=== PATIENT | female | born 1975 | race African-American/Black ===

== ENCOUNTER 2016-08-21 19:47 | Emergency (ER) | payer BC | END 2016-08-21 20:57 | disposition home or self-care (01) | LOC: D.ER 19:47 | DX: J30.9 Allergic rhinitis, unspecified (principal) ==

== ENCOUNTER 2017-12-01 09:52 | Emergency (ER) | payer BC, MEDICAID ==
[~2017-12-01] VITALS: Ht 160 cm; Wt 70.0 kg
[2017-12-01 10:01] VITALS: Ht 160 cm; Wt 70.0 kg
[2017-12-01] MEDS ORDERED: AUGMENTIN 875-11 TAB PO (10:30)
[2017-12-01 11:34] VITALS: BP 166/85
== END 2017-12-01 11:38 | disposition home or self-care (01) ==
LOC: D.ER 09:52
DX: S61.210A Laceration without foreign body of right index finger without damage to nail, initial encounter (principal); W26.8XXA Contact with other sharp object(s), not elsewhere classified, initial encounter; Y93.89 Activity, other specified; Y92.019 Unspecified place in single-family (private) house as the place of occurrence of the external cause